=== PATIENT | male | born 1970 | race Caucasian/White ===

== ENCOUNTER → 2017-10-28 | Outpatient (CLI) | payer OTHER ==
[2017-09-03 08:51] VITALS: BMI 25.1
[~2017-10-28] MED LIST: AMIT-106 PO; AMLO2.5T74 PO; ASPI81TA94 PO; CIPR-214 PO; FAMO20TA28 PO; FERR159T PO; FLU45SYR17 IM; FURO20TA19 PO; HYDR-389 PO; HYDR-4305 PO; IBUP800T37 PO; METO25TA23 PO; MONT10TA PO; ORP100 PO; POTA99TA6 PO; PROP60CA28 PO; RIZA10TA15 PO; RIZA10TA24 PO; TAMS0.4C70 PO; TRAM-420 PO; WARF1TAB63 PO; ZOLP-350 PO
[2017-10-28 08:21] LABS: PLATELET COUNT, AUTOMATED 277 K/uL (150-450)
[2017-10-28 08:33] LABS: LDL CHOLESTEROL 136 mg/dl
== END ==
LOC: LAB 08:04
PROVIDERS: ATTEND Internal Medicine
DX: N40.0 Benign prostatic hyperplasia without lower urinary tract symptoms (principal); Z98.890 Other specified postprocedural states; G47.00 Insomnia, unspecified; I34.1 Nonrheumatic mitral (valve) prolapse; G43.909 Migraine, unspecified, not intractable, without status migrainosus
CPT/HCPCS: 36415; 81001; 82040; 82247; 82310; 82374; 82435; 82465; 82565; 82947; 83718; 84075; 84132; 84153; 84155; 84295; 84443; 84450; 84460; 84478; 84520; 85025

== ENCOUNTER → 2018-05-12 | Outpatient (CLI) | payer OTHER ==
[2017-09-03 08:51] VITALS: BMI 25.1
[~2018-05-12] MED LIST changes: +DIHY1SPR3 NS; +PROL80 PO; +TIZA2CAP3 PO; +WARF1TAB15 PO; -WARF1TAB63 PO
== END ==
LOC: RESP 01:37
PROVIDERS: ATTEND Internal Medicine
DX: Z02.9 Encounter for administrative examinations, unspecified (principal)